=== PATIENT | female | born 1980 | race Caucasian/White ===

== ENCOUNTER 2023-03-23 10:04 | Outpatient (CLI) | payer OTHER | END 2023-03-23 10:05 | disposition home or self-care (01) | LOC: CSHRAD 10:04 | PROVIDERS: ATTEND Neurological Surgery | DX: M54.16 Radiculopathy, lumbar region (principal); Z98.1 Arthrodesis status | CPT/HCPCS: 72100 ==

== ENCOUNTER 2023-05-26 09:54 | Outpatient (CLI) | payer OTHER ==
[~2023-05-26 09:54] MED LIST: Iopamidol 300 61% 100 ML VIAL FS ONE
== END 2023-05-26 09:55 | disposition home or self-care (01) ==
LOC: CSHCT 09:54
PROVIDERS: ATTEND Physician Assistant Medical
DX: R10.13 Epigastric pain (principal); K58.1 Irritable bowel syndrome with constipation; R14.0 Abdominal distension (gaseous); M54.16 Radiculopathy, lumbar region; N20.0 Calculus of kidney; Z98.890 Other specified postprocedural states
CPT/HCPCS: 72100; 74177

== ENCOUNTER 2023-05-26 15:39 | Outpatient (CLI) | payer OTHER | END 2023-05-26 15:40 | disposition home or self-care (01) | LOC: CSHRAD 15:39 | PROVIDERS: ATTEND Neurological Surgery | DX: M54.16 Radiculopathy, lumbar region (principal); Z53.9 Procedure and treatment not carried out, unspecified reason | CPT/HCPCS: 72100 ==